=== PATIENT | female | born 1940 | race Caucasian/White ===

== ENCOUNTER 2017-01-24 19:16 | Inpatient (IN) | payer MEDICARE, OTHER ==
[~2017-01-24] VITALS: Ht 165.1 cm; Wt 97.0 kg
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
--- NOTE | ~2017-01-24 | ENPV ---
Carotid Duplex Study Demographics Patient Name AIDEN MOHAMUD Date of Study 01/25/2017 Patient Number [id number] Gender Female Date of 1940 Age 76 Visit Number [id number] Height 65 Accession Number [id number] Weight 207 Referring Xi Sharp Interpreting Cresencio Juárez MD Physician MEI SCHAEFER Physician Physician Ordering Physician Xi Sharp Acting Professor [employer] Tech Tariq Izquierdo RVT Conclusions Summary Bilateral proximal internal carotid arteries have mild, 1-39%, stenosis by heterogeneous/calcific plaque. Bilateral vertebral arteries are antegrade. The left subclavian artery was not visualized. Procedure Type of Study: Cerebral:Carotid, Carotid Doppler Bilateral. Indications for Study:Stroke. Appropriate Use Criteria:9 Allergies - Sulfa. - Morphine. - Other:(demerol, bandaids, latex). Patient Status:Routine. Study Location:Inpatient Portable. Technical Quality:Adequate visualization. Velocities are measured in cm/s ; Diameters are measured in cm Carotid Right Measurements Carotid Left Measurements + +--------+--------+ + + + +--------+- -------+ + + !Location !PSV !EDV !Angle !%Stenosis ! !Location !PSV !E DV !Angle !%Stenosis ! + +--------+--------+ + + + +--------+- -------+ + + !Prox CCA !86 !11 !54 ! ! !Prox CCA !64 !8 !44 ! ! + +--------+--------+ + + + +--------+- -------+ + + !Dist CCA !75 !7 !60 ! ! !Dist CCA !62 !1 2 !60 ! ! + +--------+--------+ + + + +--------+- -------+ + + !Prox ICA !46 !10 !50 !1-39% ! !Prox ICA !81 !1 8 !52 !1-39% ! + +--------+--------+ + + + +--------+- -------+ + + !Dist ICA !66 !15 !28 ! ! !Dist ICA !79 !1 3 !40 ! ! + +--------+--------+ + + + +--------+- -------+ + + !Prox ECA !91 ! !58 ! ! !Prox ECA !80 ! !60 ! ! + +--------+--------+ + + + +--------+- -------+ + + !Vertebral !63 ! !60 ! ! !Vertebral !67 ! ! ! ! + +--------+--------+ + + + +--------+- -------+ + + !Subclavian !135 ! ! ! ! + +--------+--------+ + + - There is antegrade vertebral flow noted on the right side. - There is antegrade verte bral flow noted on the left side. - Add'l Measurements:ICAPSV/CCAPSV 0.77.ICAEDV/CCAEDV 1.39. - Add'l Measurements:ICAPS V/CCAPSV 1.26.ICAEDV/CCAEDV 2.17. Impressions Right Impression Tortuous internal carotid artery. Left Impression Tortuous internal carotid artery. Signature dtt: EUSEBIO GUERRA dtd: 01/25/17 1134 Physician Self Edit
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
--- NOTE | ~2017-01-24 | ECHO ---
Transthoracic Echocardiography Report (TTE) Demographics Patient Name AIDEN MOHAMUD Date of Study 01/25/2017 Patient Number [id number] Visit Number [id number] Date of 1940 Room Number [id number] Accession Number [id number] Gender Female Age 76 year(s) Referring Xi Sharp Cooker Loader Valarie Villagomez RDCS, Physician RVT Physician Interpreting Colton Carbajal Exhibit Display Representative Physician MD Supervising Ordering Physician Mel FITZPATRICK MD/MLP Nurse Stress Pitting Machine Operator Conclusions Contractility Score Summary Normal Left Ventricular contractility was noted. Summary Normal LV size and systolic function. The estimated left ventricular ejection fraction is 60-65%. Mild concentric left ventricular hypertrophy. Mildly dilated RV with mildly reduced RV systolic function. Diastolic assessment reveals Grade III restrictive diastolic dysfunction. A bubble study was done, there is no evidence for a PFO or ASD. The left atrium is severely dilated by LA volume index measurement. Dilated IVC with poor inspiratory collapse consistent with elevated RA pressure. Trivial TR. Epicardial fat pad noted. Procedure Type of Study TTE procedure:2D Echocardiogram. Procedure Date Date: 01/25/2017 Start: 07:04 AM Study Location: Inpatient Portable Technical Quality: Fair due to lung interference. Indications:CVA. Appropriate Use Criteria: 9 Patient Status: Routine Rhythm: Sinus tachycardia HR: 90 bpm BP: 162/73 mmHg Allergies - Sulfa. - Morphine. - Other:(demerol, bandaids, latex). M-Mode/2D Measurements LV Diastolic Dimension: 3.82 cm LV Systolic Dimension: 2.68 cm LV Septum Diastolic: 1.02 cm LV PW Diastolic: 1.03 cm AO Root Dimension: 2.2 cm Cardiac Output: 5.37 l/min AV Cusp Separation: 1.7 cm RV Diastolic Dimension: 3.09 cm LA volume: 71 ml IVC Inspiration: 1.37 cm LVOT: 2.2 cm RV Base: 3.37 cm LVOT VTI: 15.7 cm RV Mid: 3.12 cm LV Stroke volume: 59.65 ml TAPSE: 1.31 cm TDI-S': 12 cm/s Doppler Measurements AV Peak Velocity: 1.63 m/s MV Peak E-Wave: 1.56 m/s AV Peak Gradient: 10.63 mmHg MV Peak A-Wave: 0.59 m/s AV Mean Gradient: 5 mmHg MV E/A Ratio: 2.66 LVOT Peak Velocity: 0.65 m/s MV P1/2t: 40 msec TR Gradient:53.58 mmHg PV Peak Velocity: 1.01 m/s Estimated RAP:8 mmHg PV Peak Gradient: 4.08 mmHg Estimated RVSP: 62 mmHg Estimated PASP: 61.58 mmHg E' Septal Velocity: 0.1 m/s A' Septal Velocity: 0.04 m/s E' Lateral Velocity: 0.13 m/s A' Lateral Velocity: 0.04 m/s MV E/E' Ratio: 17.2 Findings Left Ventricle The estimated left ventricular ejection fraction is 60-65%. Mild concentric left ventricular hypertrophy. Diastolic assessment reveals Grade III restrictive diastolic dysfunction. Sigmoid septum seen 1.21cm. Right Ventricle Mildly dilated RV with mildly reduced RV systolic function. Left Atrium A bubble study was done, there is no evidence for a PFO or ASD. The left atrium is severely dilated. Right Atrium Dilated IVC with poor inspiratory collapse consistent with elevated RA pressure. IVC measures 2.16 cms. The right atrium is mildly dilated. Mitral Valve Mild mitral regurgitation by color Doppler. Aortic Valve The aortic valve is mildly sclerotic. Tricuspid Valve Inadequate TR jet, unable to accurately comment on PASP. Trivial tricuspid regurgitation by color Doppler. Pulmonic Valve The pulmonic valve is not well visualized. Pericardial Effusion Epicardial fat pad noted. Miscellaneous Visualized portions of the aortic root and ascending aorta appear normal in size. Pleural Effusion No evidence of pleural effusion. Contractility Score LV regional wall motion:(0-Non visualized 1-Normal 2-Hypokinesis 3-Akinesis 4-Dyskinesis 5-Aneurysm) Signature dtt: RAYMON BARON dtd: 01/25/17 0704 Physician Self Edit
--- NOTE | ~2017-01-24 | NDGEN ---
PATIENT'S NAME: AIDEN MOHAMUD [facility] AGE: 76 Y [address] ROOM: [id number], [place] [address] LOCATION: [facility] ADMIT DATE: 01/24/2017 Neurodiagnostics DISCHARGE DATE: FAMILY PHYSICIAN: PHYSICIAN, UNKNOWN ATTENDING PHYSICIAN: Clement HURLEY PROCEDURE: ELECTROENCEPHALOGRAM DATE OF PROCEDURE: 01/26/2017 DATE AND TIME OF STUDY: 2:10 in the afternoon on 01/26/2017. INDICATION: A 76-year-old female patient, who presents with about 2 weeks of unexplained delirium, periods with poor responsiveness. She has episodes of agitation, grimacing, and fidgeting movements during the 20-minute EEG recording. This EEG was done to rule out any episodes of epileptiform activity in the background or potential seizures and to get a good sense of the general background rhythm. FINDINGS: This 20-lead EEG, the patient had her eyes closed with fidgeting in the bed. The general background rhythm appeared to show a normal sinusoidal pattern of 9-10 hertz alpha pattern that remained stable and symmetric in all leads throughout the whole study even with movement artifacts. With the patient's fidgeting, grimacing, shoulder shrugging, and moving throughout the course of the study, the background normal rhythm did not change. At no time were there any epileptiform features seen and no seizures were recorded. IMPRESSION: Normal EEG. MD MACY GREENBERG/siddhartha /[id number] dtt: 02/14/17 1624 SLAVA JASON R. dtd: 01/28/17 0020
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
[2017-01-24] MEDS ORDERED: TYLENOL325 MG PO (23:34)
[2017-01-24] MEDS ORDERED: ELAVIL50 MG PO (23:35)
[2017-01-24] MEDS ORDERED: LASIX40 MG PO (23:36)
[2017-01-24] MEDS ORDERED: LANTUS (IN100 UNIT/M SUB-Q (23:37)
[2017-01-24] MEDS ORDERED: COZAAR50 MG PO (23:38)
[2017-01-24] MEDS ORDERED: LEXAPRO10 MG PO (23:38)
[2017-01-24] MEDS ORDERED: MAG-OX-400(241400 MG PO (23:39)
[2017-01-24] MEDS ORDERED: GLUCOPHAGE500 MG PO (23:40)
[2017-01-24] MEDS ORDERED: LOPRESSOR25 MG PO (23:41)
[2017-01-24] MEDS ORDERED: OXYCODONE HCL5 MG PO (23:44)
[2017-01-24] MEDS ORDERED: PLAVIX75 MG PO (23:44)
[2017-01-24] MEDS ORDERED: PROTONIX40 MG PO (23:45)
[2017-01-24] MEDS ORDERED: SPIRIVA HANDIHA1 KIT INH (23:46)
[2017-01-24] MEDS ORDERED: COUMADIN ** 9/62 MG PO (23:49)
[2017-01-24] MEDS ORDERED: COUMADIN 4MG **4 MG PO (23:52)
[2017-01-24] MEDS ORDERED: NISOLDIPINE17 MG PO (23:55)
[2017-01-25 02:10] LABS: BASOPHIL % 0.3 %; EOSINOPHIL # 0.2 K/uL (0.0-0.5); EOSINOPHIL % 2.9 %; HEMATOCRIT 36.7 % (33.0-46.0); HEMOGLOBIN 11.8 g/dL (10.0-15.0); IMMATURE GRANULOCYTE % 0.3 %; LYMPHOCYTE # 2.5 K/uL (0.8-4.0); LYMPHOCYTE % 34.5 %; MCH 31.6 pg (27.0-34.0); MCHC 32.2 gm/dL (32.0-36.5); MCV 98.4 fl (83.0-98.0); MONOCYTE # 0.8 K/uL (0.0-1.0); MONOCYTE % 10.4 %; MPV 8.6 fl (9.4-12.4); NEUTROPHIL # (ANC) 3.8 K/uL (1.8-7.8); NEUTROPHIL % 51.6 %; NRBC % 0 /100WBC (0-0.00); PLATELET COUNT 332 K/uL (150-450); RBC 3.73 M/uL (3.50-5.50); RDW-CV 13.3 % (11.9-14.6); WBC 7.3 K/uL (4.0-11.0)
[2017-01-25 02:19] LABS: INR - (THERAPEUTIC) 1.43 (0.92-1.07); PROTIME 15.1 SECONDS (9.8-11.4); PTT 30 SECONDS (25-32)
[2017-01-25 02:30] LABS: ALBUMIN 2.8 gm/dL (3.5-5.0); ANION GAP 10.6 (10.0-19.0); POTASSIUM 3.6 mMol/L (3.7-5.1); TOTAL BILIRUBIN 0.5 mg/dL (0.0-1.5); TOTAL PROTEIN 6.7 g/dL (6.0-8.4)
[2017-01-25 06:17] LABS: BILIRUBIN URINE NEGATIVE (NEGATIVE); BLOOD URINE 50 /UL (NEGATIVE); COLOR URINE YELLOW (YELLOW); GLUCOSE URINE 1000 mg/dL (NEGATIVE); KETONE URINE 5 mg/dL (NEGATIVE); LEUKOCYTES URINE NEGATIVE /UL (NEGATIVE); NITRITE URINE NEGATIVE (NEGATIVE); PROTEIN URINE 100 mg/dL (NEGATIVE); SPEC GRAVITY URINE 1.025 (1.003-1.035); TURBIDITY URINE CLEAR (CLEAR); UROBILINOGEN URINE NORMAL (NORMAL)
[2017-01-25 06:28] LABS: BACTERIA URINE FEW (NEGATIVE); EPITHELIAL URINE 0-2 #/HPF (NEGATIVE); MUCUS URINE 1+ (NEGATIVE)
[2017-01-25] MEDS ORDERED: CRESTOR40 MG PO (09:34)
[2017-01-25] MEDS ORDERED: ULTRAM50 MG PO (09:37)
[2017-01-26 06:04] LABS: BASOPHIL % 0.2 %; EOSINOPHIL # 0.4 K/uL (0.0-0.5); EOSINOPHIL % 6.6 %; HEMOGLOBIN 11.6 g/dL (10.0-15.0); IMMATURE GRANULOCYTE % 0.3 %; LYMPHOCYTE # 1.9 K/uL (0.8-4.0); LYMPHOCYTE % 31.7 %; MCHC 32.2 gm/dL (32.0-36.5); MCV 99.4 fl (83.0-98.0); MONOCYTE # 0.6 K/uL (0.0-1.0); MONOCYTE % 9.3 %; MPV 8.5 fl (9.4-12.4); NEUTROPHIL # (ANC) 3.1 K/uL (1.8-7.8); NEUTROPHIL % 51.9 %; NRBC % 0 /100WBC (0-0.00); PLATELET COUNT 311 K/uL (150-450); RBC 3.62 M/uL (3.50-5.50); RDW-CV 13.2 % (11.9-14.6); WBC 5.9 K/uL (4.0-11.0)
[2017-01-26 06:17] LABS: ALBUMIN 2.7 gm/dL (3.5-5.0); CALCIUM 8.9 mg/dL (8.5-10.5); CREATININE 0.8 mg/dL (0.5-1.1); PHOSPHORUS 3.5 mg/dL (2.5-4.9)
[2017-01-27 07:11] LABS: INR - (THERAPEUTIC) 2.2 (0.92-1.07); PROTIME 23.3 SECONDS (9.8-11.4)
[2017-01-28 05:25] LABS: INR - (THERAPEUTIC) 2.28 (0.92-1.07); PROTIME 24.1 SECONDS (9.8-11.4)
[2017-01-28 09:27] LABS: BASOPHIL % 0.4 %; EOSINOPHIL # 0.3 K/uL (0.0-0.5); EOSINOPHIL % 5.8 %; HEMATOCRIT 38.8 % (33.0-46.0); HEMOGLOBIN 12.1 g/dL (10.0-15.0); IMMATURE GRANULOCYTE % 0.5 %; LYMPHOCYTE # 1.5 K/uL (0.8-4.0); MCH 30.9 pg (27.0-34.0); MCHC 31.2 gm/dL (32.0-36.5); MONOCYTE # 0.5 K/uL (0.0-1.0); MONOCYTE % 8.4 %; MPV 8.7 fl (9.4-12.4); NEUTROPHIL # (ANC) 3.3 K/uL (1.8-7.8); NEUTROPHIL % 57.9 %; NRBC % 0 /100WBC (0-0.00); PLATELET COUNT 333 K/uL (150-450); RBC 3.92 M/uL (3.50-5.50); RDW-CV 13.8 % (11.9-14.6); WBC 5.7 K/uL (4.0-11.0)
[2017-01-28 09:58] LABS: ALBUMIN 2.6 gm/dL (3.5-5.0); ANION GAP 11.3 (10.0-19.0); CALCIUM 8.9 mg/dL (8.5-10.5); CREATININE 0.9 mg/dL (0.5-1.1); MAGNESIUM 1.9 mg/dL (1.8-2.6); PHOSPHORUS 3.7 mg/dL (2.5-4.9); POTASSIUM 4.3 mMol/L (3.7-5.1); TOTAL BILIRUBIN 0.5 mg/dL (0.0-1.5)
[2017-01-29 05:18] LABS: INR - (THERAPEUTIC) 2.56 (0.92-1.07); PROTIME 27.1 SECONDS (9.8-11.4)
[2017-01-29 12:06] LABS: BASOPHIL % 0.4 %; EOSINOPHIL # 0.4 K/uL (0.0-0.5); EOSINOPHIL % 6.5 %; HEMATOCRIT 34.2 % (33.0-46.0); HEMOGLOBIN 10.9 g/dL (10.0-15.0); IMMATURE GRANULOCYTE % 0.1 %; LYMPHOCYTE # 1.9 K/uL (0.8-4.0); LYMPHOCYTE % 28.3 %; MCH 31.8 pg (27.0-34.0); MCHC 31.9 gm/dL (32.0-36.5); MCV 99.7 fl (83.0-98.0); MONOCYTE # 0.6 K/uL (0.0-1.0); MONOCYTE % 8.9 %; NEUTROPHIL # (ANC) 3.7 K/uL (1.8-7.8); NEUTROPHIL % 55.8 %; NRBC % 0 /100WBC (0-0.00); PLATELET COUNT 279 K/uL (150-450); RBC 3.43 M/uL (3.50-5.50); RDW-CV 13.9 % (11.9-14.6); WBC 6.7 K/uL (4.0-11.0)
[2017-01-30 01:07] LABS: CPK 107 IU/L (21-215)
[2017-01-30 07:29] LABS: ANION GAP 14.3 (10.0-19.0); CALCIUM 8.8 mg/dL (8.5-10.5); CREATININE 0.8 mg/dL (0.5-1.1); MAGNESIUM 1.6 mg/dL (1.8-2.6); PHOSPHORUS 3.2 mg/dL (2.5-4.9); POTASSIUM 3.3 mMol/L (3.7-5.1); TOTAL BILIRUBIN 0.6 mg/dL (0.0-1.5)
[2017-01-30 07:36] LABS: BASOPHIL % 0.3 %; EOSINOPHIL # 0.4 K/uL (0.0-0.5); EOSINOPHIL % 5.2 %; HEMATOCRIT 35.8 % (33.0-46.0); IMMATURE GRANULOCYTE % 0.3 %; LYMPHOCYTE % 25.7 %; MCH 31.8 pg (27.0-34.0); MCHC 33.5 gm/dL (32.0-36.5); MONOCYTE # 0.6 K/uL (0.0-1.0); MONOCYTE % 7.1 %; MPV 9.1 fl (9.4-12.4); NEUTROPHIL # (ANC) 4.8 K/uL (1.8-7.8); NEUTROPHIL % 61.4 %; NRBC % 0 /100WBC (0-0.00); PLATELET COUNT 298 K/uL (150-450); RBC 3.77 M/uL (3.50-5.50); RDW-CV 13.6 % (11.9-14.6); WBC 7.8 K/uL (4.0-11.0)
[2017-01-30 10:26] LABS: INR - (THERAPEUTIC) 2.69 (0.92-1.07); PROTIME 28.5 SECONDS (9.8-11.4)
[2017-01-31] MEDS ORDERED: NORVASC5 MG PO (11:06)
[2017-01-31] MEDS ORDERED: ASPIRIN300 MG R (11:09)
[2017-01-31] MEDS ORDERED: LIPITOR80 MG PO (11:15)
[2017-01-31] MEDS ORDERED: PREVALITE PACKET4 GM PO ×3 (11:18→11:21)
[2017-01-31] MEDS ORDERED: NAMENDA10 MG PO ×5 (11:28→11:50)
[2017-01-31] MEDS ORDERED: NYATA15 GM TOP (11:54)
[2017-01-31] MEDS ORDERED: K-TAB 10MEQ10 MEQ PO (11:56)
[2017-01-31] MEDS ORDERED: SEROQUEL25 MG PO (11:58)
== END 2017-01-31 13:00 | disposition hospice, home (50) | DRG 64 ==
LOC: GICU 23:00 → GPCU 23:00 → GICU 23:10 → GPCU 01-29 10:47
PROVIDERS: Family Medicine; Internal Medicine; ADMIT Internal Medicine
DX: I63.8 Other cerebral infarction (principal); G93.40 Encephalopathy, unspecified; E44.0 Moderate protein-calorie malnutrition; J96.11 Chronic respiratory failure with hypoxia; N39.0 Urinary tract infection, site not specified; I11.0 Hypertensive heart disease with heart failure; I50.32 Chronic diastolic (congestive) heart failure; I48.2 Chronic atrial fibrillation; S32.030A Wedge compression fracture of third lumbar vertebra, initial encounter for closed fracture; G31.83 Neurocognitive disorder with Lewy bodies; E11.9 Type 2 diabetes mellitus without complications; B96.20 Unspecified Escherichia coli [E. coli] as the cause of diseases classified elsewhere; E87.6 Hypokalemia; G47.33 Obstructive sleep apnea (adult) (pediatric); I25.10 Atherosclerotic heart disease of native coronary artery without angina pectoris; Z79.01 Long term (current) use of anticoagulants; R41.843 Psychomotor deficit; K21.9 Gastro-esophageal reflux disease without esophagitis; J44.9 Chronic obstructive pulmonary disease, unspecified; Z66 Do not resuscitate; Z95.5 Presence of coronary angioplasty implant and graft; F02.80 Dementia in other diseases classified elsewhere, unspecified severity, without behavioral disturbance, psychotic disturbance, mood disturbance, and anxiety; Z79.4 Long term (current) use of insulin; Z79.82 Long term (current) use of aspirin
CPT/HCPCS: C9113; J0131; J0360; J1200; J1630; J1650; J2001; J2060; J3475; J3480; J7030; J7050; P9047; Q9967

== ENCOUNTER → 2017-01-31 | Outpatient (CLI) | payer MEDICARE, OTHER ==
[~2017-01-31] MED LIST: ASPIRIN300 MG R; COUMADIN ** 9/62 MG PO; COUMADIN 4MG **4 MG PO; COZAAR50 MG PO; CRESTOR40 MG PO; ELAVIL50 MG PO; GLUCOPHAGE500 MG PO; K-TAB 10MEQ10 MEQ PO; LANTUS (IN100 UNIT/M SUB-Q; LASIX40 MG PO; LEXAPRO10 MG PO; LIPITOR80 MG PO; LOPRESSOR25 MG PO; MAG-OX-400(241400 MG PO; NAMENDA10 MG PO; NISOLDIPINE17 MG PO; NORVASC5 MG PO; NYATA15 GM TOP; OXYCODONE HCL5 MG PO; PLAVIX75 MG PO; PREVALITE PACKET4 GM PO; PROTONIX40 MG PO; SEROQUEL25 MG PO; SPIRIVA HANDIHA1 KIT INH; TYLENOL325 MG PO; ULTRAM50 MG PO
== END | disposition disaster alternative care site (69) ==
LOC: GAMB 12:05
DX: I63.9 Cerebral infarction, unspecified (principal); I10 Essential (primary) hypertension; I25.10 Atherosclerotic heart disease of native coronary artery without angina pectoris; E11.9 Type 2 diabetes mellitus without complications; J44.9 Chronic obstructive pulmonary disease, unspecified; Z90.49 Acquired absence of other specified parts of digestive tract; Z90.89 Acquired absence of other organs; Z96.659 Presence of unspecified artificial knee joint; Z90.710 Acquired absence of both cervix and uterus; Z79.82 Long term (current) use of aspirin; Z79.4 Long term (current) use of insulin; Z79.01 Long term (current) use of anticoagulants; Z99.81 Dependence on supplemental oxygen; Z79.899 Other long term (current) drug therapy; Z88.5 Allergy status to narcotic agent; Z88.2 Allergy status to sulfonamides; Z88.6 Allergy status to analgesic agent; Z91.040 Latex allergy status; Z88.8 Allergy status to other drugs, medicaments and biological substances
CPT/HCPCS: A0425; A0428